=== PATIENT | female | born 2000 | race Caucasian/White ===

== ENCOUNTER 2021-07-23 11:15 | Emergency (ER) | payer OTHER ==
[~2021-07-23] VITALS: Ht 170.2 cm; Wt 77.3 kg
[2021-07-23 11:40] VITALS: BP 145/80; TEMP 98.2
[2021-07-23] MEDS ORDERED: PREDNISONE20 MG PO (12:33)
[2021-07-23 12:51] VITALS: PULSE 91
== END 2021-07-23 12:51 | disposition home or self-care (01) ==
LOC: COL.ER 11:15
DX: R21 Rash and other nonspecific skin eruption (principal)